=== PATIENT | male | born 1990 | race African-American/Black ===

== ENCOUNTER 2018-04-28 02:13 | Emergency (ER) | payer OTHER ==
[2018-04-28] MEDS: BENOXINATE/FLUORESCEIN DROPS RIGHT EYE (04:30)
[2018-04-28] MEDS: FLUORESCEIN STRIP BOTH EYES (04:30)
[2018-04-28 04:36] LABS: ADD MAN DIFF? NO
[2018-04-28 04:38] LABS: BASOPHILS % 0.3 % (0.0-2.0); EOSINOPHILS # 0.1 10^3/ul (0.0-0.5); EOSINOPHILS % 0.9 % (0.0-7.0); HEMATOCRIT 42.3 % (42.0-52.0); HEMOGLOBIN 14.4 g/dl (14.0-18.0); LYMPHOCYTES # 1.5 10^3/ul (0.8-2.9); LYMPHOCYTES % 17.6 % (15.0-51.0); MEAN CORPUSCULAR HEMOGLOBIN 28.3 pg (29.0-33.0); MEAN CORPUSCULAR VOLUME 83.1 fl (82.0-101.0); MEAN PLATELET VOLUME 9.7 fl (7.4-10.4); MONOCYTE # 0.4 10^3/ul (0.3-0.9); NEUTROPHIL # 6.5 10^3/ul (1.6-7.5); NEUTROPHILS % 75.6 % (39.0-77.0); PLATELET COUNT 268 10^3/UL (140-415); RED BLOOD COUNT 5.09 10^6/ul (4.70-6.10); RED CELL DISTRIBUTION WIDTH 13.4 % (11.5-14.5)
[2018-04-28 04:38] LABS: WHITE BLOOD COUNT 8.6 10^3/ul (4.8-10.8)
[2018-04-28 04:57] LABS: INR 0.98; PROTIME 13.1 Sec (11.9-14.9)
[2018-04-28 04:58] LABS: ANION GAP 16 (8-16); BLOOD UREA NITROGEN 13 mg/dl (7-20); CALCIUM 9.4 mg/dl (8.4-10.2); CARBON DIOXIDE 27 mmol/L (21-31); CHLORIDE 108 mmol/L (97-110); CREATININE 1.18 mg/dl (0.61-1.24); GLUCOSE 112 mg/dl (70-220); PARTIAL THROMBOPLASTIN TIME 24.4 Sec (25.0-35.0); POTASSIUM 3.9 mmol/L (3.5-5.1); SODIUM 147 mmol/L (135-144)
[2018-04-28] MEDS: ERYTHROMYCIN 1 GM OPH OINT RIGHT EYE (05:34)
[2018-04-28] MEDS: DIPHTH/TET/ACEL PERTUSS (ADULT) 0.5 ML VIAL IM* (05:37)
== END 2018-04-28 05:57 ==
LOC: E/R 02:13
DX: S01.81XA Laceration without foreign body of other part of head, initial encounter (principal); V49.50XA Passenger injured in collision with unspecified motor vehicles in traffic accident, initial encounter; Z23 Encounter for immunization
CPT/HCPCS: 12011; 70450; 71045; 71100; 72125; 80048; 85025; 85610; 85730; 90471; 90715; 99285-25

== ENCOUNTER 2018-04-29 21:52 | Emergency (ER) | payer SELFPAY, OTHER | END 2018-04-29 23:42 | disposition left against medical advice (07) | LOC: FTE 21:52 | DX: Z53.21 Procedure and treatment not carried out due to patient leaving prior to being seen by health care provider (principal) ==

== ENCOUNTER 2018-05-14 11:03 | Emergency (ER) | payer SELFPAY, OTHER ==
[2018-05-14] MEDS: IBUPROFEN 600 MG TAB PO (12:12)
== END 2018-05-14 13:03 | disposition home or self-care (01) ==
LOC: FTE 11:03
DX: R07.89 Other chest pain (principal)
CPT/HCPCS: 71100; 99283-25